=== PATIENT | female | born 1990 | race Caucasian/White ===

== ENCOUNTER 2020-12-17 21:29 | Emergency (ER) | payer OTHER ==
[~2020-12-17] VITALS: Ht 154.9 cm; Wt 59.0 kg
[2020-12-17 21:41] VITALS: BP 109/77
--- NOTE | 2020-12-17 21:41 | NUR ---
30 Y/O FEMALE BIB SELF C/O OF RT EAR ACHE X2DAYS. PT STATES "FEELS LIKE SOMETHING IS STUCK." DENIES ANY DRAINAGE OR TRAUMA. PT STATES 8/10 THROBBING PAIN. REDNESS TO RT INNER EAR. MEDHX: MIGRAINES NKA
--- NOTE | 2020-12-17 21:45 | NUR ---
PT AMBULATED TO BED 04.
--- NOTE | 2020-12-17 21:48 | NUR ---
ERMD AT BEDSIDE EXAMINING PT
[2020-12-17] MEDS ORDERED: AMOX500C25 PO (21:58)
[2020-12-17 22:00] VITALS: BP 109/77
== END 2020-12-17 22:00 | disposition home or self-care (01) ==
LOC: MED 21:29
DX: H66.91 Otitis media, unspecified, right ear (principal); G43.909 Migraine, unspecified, not intractable, without status migrainosus
CPT/HCPCS: 99283

== ENCOUNTER 2022-03-13 19:48 | Emergency (ER) | payer OTHER ==
[~2022-03-13] VITALS: Ht 154.9 cm; Wt 61.7 kg
[~2022-03-13 19:48] MED LIST: AMOX500C25 PO
[2022-03-13 20:07] VITALS: BP 151/87
--- NOTE | 2022-03-13 20:12 | NUR ---
Patient watied in Lobby.
--- NOTE | 2022-03-13 22:24 | NUR ---
Pooja junior in [facility] - 03/13/22 at 2225 by [email or web address] PT TO [facility]
--- NOTE | 2022-03-13 22:25 | NUR ---
pt called to b no answer.
[2022-03-13] MEDS ORDERED: NACL 0.9% 1,000 ML IV ONE (22:35)
--- NOTE | 2022-03-13 22:48 | NUR ---
PT TAKEN TO CHAIR B
--- NOTE | 2022-03-13 22:48 | NUR ---
Dr. Hatch examining patient.
[2022-03-13] MEDS ORDERED: DEXAMETHASONE 10 MG/ML VIAL IVP ONE (22:50)
[2022-03-13] MEDS ORDERED: KETOROLAC 15 MG/ML VIAL IVP ONE (22:50)
[2022-03-13] MEDS ORDERED: diphenhydrAMINE 50 MG/ML VIAL IVP ONE (22:50)
[2022-03-13] MEDS ORDERED: METOCLOPRAMIDE 10 MG/2 ML INJ VIAL IVP ONE (22:50)
[2022-03-13 23:04] LABS: BASOPHILS # (AUTO) 0.1 K/uL (0.00-0.22); BASOPHILS % (AUTO) 1.1 % (0.0-2.0); EOSINOPHILS # (AUTO) 0.3 K/uL (0-0.4); EOSINOPHILS % (AUTO) 4.2 % (0.0-4.0); HEMATOCRIT 41.1 % (36-48); HEMOGLOBIN 13.7 g/dL (12.0-16.0); LYMPHOCYTES # (AUTO) 3.4 K/uL (2.5-16.5); LYMPHOCYTES % (AUTO) 43.6 % (20.5-51.1); MEAN CORPUSCULAR HEMOGLOBIN 31 pg (27-31); MEAN CORPUSCULAR HGB CONC 33 g/dL (33-37); MEAN CORPUSCULAR VOLUME 93.6 fL (80-94); MONOCYTES # (AUTO) 0.6 K/uL (0.8-1.0); MONOCYTES % (AUTO) 7.6 % (1.7-9.3); NEUTROPHILS # (AUTO) 3.4 K/uL (1.8-7.7); NEUTROPHILS % (AUTO) 43.5 % (42.2-75.2); PLATELET COUNT (AUTO) 237 K/uL (140-450); RED BLOOD CELL COUNT(AUTO) 4.39 MIL/uL (4.20-5.40); WHITE BLOOD COUNT (AUTO) 7.7 K/uL (4.8-10.8)
[2022-03-13 23:18] LABS: ALBUMIN 3.8 g/dL (3.4-5.0); ANION GAP 12.7 (8-16); CARBON DIOXIDE 25.9 mmol/L (21-32); CREATININE 0.8 mg/dL (0.6-1.3); MAGNESIUM 1.9 mg/dL (1.8-2.4); PHOSPHORUS 3.1 mg/dL (2.5-4.9); POTASSIUM 3.6 mmol/L (3.5-5.1); TOTAL BILIRUBIN 0.3 mg/dL (0.0-1.0)
--- NOTE | 2022-03-13 23:34 | NUR ---
pt medicated per ermd orders.
[2022-03-14 01:05] VITALS: BP 120/78
--- NOTE | 2022-03-14 01:05 | NUR ---
Patient discharged with v/s stable. Written and verbal after care instructions given and explained. Patient verbalized understanding. Ambulatory with steady gait. All questions addressed prior to discharge. Advised to follow up with PMD.
== END 2022-03-14 01:05 | disposition home or self-care (01) ==
LOC: MED 19:48
DX: G43.909 Migraine, unspecified, not intractable, without status migrainosus (principal); I10 Essential (primary) hypertension
CPT/HCPCS: 36415; 80053; 83735; 84100; 84702; 85025; 96361; 96374; 96375; 99284; J1100; J1200; J1885; J2765; J7030

== ENCOUNTER 2022-09-05 21:49 | Emergency (ER) | payer OTHER ==
[~2022-09-05] VITALS: Ht 154.9 cm; Wt 59.0 kg
[2022-09-05 22:19] VITALS: BP 124/78
--- NOTE | 2022-09-05 22:20 | NUR ---
PT AMBULATED TO BED #5
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
[2022-09-05 22:45] LABS: APPEARANCE,URINE CLEAR (CLEAR); COLOR,URINE YELLOW (YELLOW)
[2022-09-05 22:46] LABS: BILIRUBIN,URINE NEGATIVE (NEGATIVE); BLOOD, URINE TRACE (NEGATIVE); LEUKOCYTE ESTERASE ,URINE NEGATIVE (NEGATIVE); NITRITE, URINE NEGATIVE (NEGATIVE); UGLUCOSE NEGATIVE (NEGATIVE)
[2022-09-05 22:48] LABS: WBC,URINE 0-5 /HPF (0-5)
--- NOTE | 2022-09-05 22:54 | NUR ---
Dr. Watkins examining patient.
[2022-09-05] MEDS ORDERED: KETOROLAC 30 MG/ML VIAL IM ONE (23:05)
--- NOTE | 2022-09-05 23:18 | NUR ---
X-Ray at bedside.
--- NOTE | 2022-09-06 00:43 | NUR ---
The patient's care was reviewed and supervised by Viola Vuong RN.
== END 2022-09-06 00:40 | disposition home or self-care (01) ==
LOC: MED 21:49
DX: S09.90XA Unspecified injury of head, initial encounter (principal); R07.89 Other chest pain; R10.9 Unspecified abdominal pain; M25.512 Pain in left shoulder; Z79.899 Other long term (current) drug therapy; V89.2XXA Person injured in unspecified motor-vehicle accident, traffic, initial encounter; Y93.89 Activity, other specified; Y92.89 Other specified places as the place of occurrence of the external cause; Y99.8 Other external cause status
CPT/HCPCS: 71045; 73030; 81001; 81025; 87086; 96372; 99284; J1885; Q0092